=== PATIENT | female | born 1940 | race Caucasian/White ===

== ENCOUNTER → 2018-03-13 13:00 | Outpatient (CLI) | payer MEDICARE, SELFPAY | PROVIDERS: PCP Nurse Practitioner; Visit Provider Physician Assistant | DX: R00.2 Palpitations (principal) | CPT/HCPCS: 93225; 93226 ==

== ENCOUNTER → 2018-03-25 12:00 | Outpatient (CLI) | payer MEDICARE, SELFPAY ==
--- NOTE | 2018-03-25 12:13 | NM_ITS ---
CARDIOLITE SPECT MYOCARDIAL PERFUSION SCAN, REST AND STRESS: EXERCISE STRESS [facility] REVIEW QGS EF AND WALL MOTION EVALUATION: QPS - PERFUSION EVALUATION HISTORY: SOB, Palpitations, HTN, CAD DOSE: 9.76 mCi technetium 99m mibi intravenously at rest followed by 31.7 mCi technetium 99m mibi following the intravenous ministration of 0.4 mg of Lexiscan. Resting blood pressure is 155/86. Stress blood pressure 111/65. FINDINGS: Ejection fraction is calculated to be 55%. Stress images reveal severely decreased activity in the mid anterior apical wall and septum. Rest images reveal improved activity in the apex with minimal improvement in the septum and slight improvement in the mid anterior wall. IMPRESSION: High risk abnormal stress test. The stress test suggests previous nontransmural myocardial infarction involving the mid anterior apical wall and septum with reversibility in a portion of the anterior wall and apex. The septum is not reversed. There is mild anterior apical hypokinesis. Normal ejection fraction
--- NOTE | 2018-03-25 12:30 | HMH.ITSHM ---
CARVEDILOL TRIAM/HCTZ ATORVASTATIN ESTRADOL IBANDRONATE SODIUM
== END ==
PROVIDERS: Family Provider Family Medicine; PCP Nurse Practitioner; Visit Provider Physician Assistant
DX: R07.9 Chest pain, unspecified (principal); I25.10 Atherosclerotic heart disease of native coronary artery without angina pectoris; R06.00 Dyspnea, unspecified
CPT/HCPCS: 78452; 93017; 93306; A9502; J2785

== ENCOUNTER → 2019-07-08 12:56 | Outpatient (POV) | payer MEDICARE, SELFPAY | PROVIDERS: Visit Provider Dermatology | DX: Z00.00 Encounter for general adult medical examination without abnormal findings (principal) ==

== ENCOUNTER 2025-05-04 11:57 | Day surgery (SDC) | payer MEDICARE, SELFPAY ==
[2025-05-04] MEDS: LACTATED RINGERS 1000ML 1,000 ML 50 ML IV (12:49)
[2025-05-04 12:56] VITALS: BP 123/71; PULSE 63; RESP 18; TEMP 36.3; O2SAT 98
--- NOTE | 2025-05-04 13:05 | EXP.ANES.CKL ---
[facility] Disclaimer: The information contained in this section may have been updated after the patient was seen, as this information can be updated by other users. Medical History Skin cancer Left bundle branch block Rectocele Osteoporosis Melanosis coli Hypertension Heart disease Hemorrhoids Diverticulosis Surgical History Hx of cardiac cath H/O vaginal hysterectomy History of cholecystectomy H/O: hysterectomy Family History Other Cancer Heart disease Social History Smoking Status: Never smoker alcohol intake: never substance use type: denies use current occupational status: retired Travel in the last 8 weeks?: None Have you lived/traveled outside [place] in past 30 days?: No Contact w/someone who lives/traveled outside US past 30 days?: No Exposure to someone with infectious disease in past 14 days?: No Do you have a fever (greater than 100.4 F or 38 C)?: No Have you tested positive for COVID-19?: No Exposed to someone with COVID-19 in past 14 days?: No Do you have a sore throat?: No Do you have a cough?: No Do you have any weakness?: No Are you experiencing any nausea/vomitting?: No Do you have any diarrhea?: No Are you experiencing any unusual bleeding?: No Do you have any muscle aches/pain?: No Do you have any abdominal pain?: No Are you experiencing loss of taste or smell?: No [facility] Anesthesia Checklist Patient Identification Patient Identification: Arm Band and Verbal (Name & ) Structural Data Admitted From: Home Planned Operative Procedure/s: colonscopy Consent for Planned Operative Procedure(s) Verified: Yes Verified Documents: Surgical Consent and History and Physical NPO Status Verified Time NPO: 00:00 Additional verifications Patient : No Anesthesia Reactions: No Previous Colonoscopy: Yes Airway Assessment Mallampati Score:: Class III Neurological Assessment Level of Consciousness: Awake, Alert and Appropriate Hx Seizures: No Anesthesia Plan Anesthesia Risk discussed: Yes Anesthesia Plan: Verified ASA Class: II Anesthesia Type: MAC
--- NOTE | 2025-05-04 13:14 | EXP.HP ---
History of Present Illness *Admission Date: 05/04/25 *Reason for visit:: Personal history of adenomatous colon polyps *History of present illness: Mrs. Johanna Henley is an 84-year-old female with a prior history of multiple adenomatous colon polyps and a family history of colon cancer who is here for surveillance colonoscopy. The examination is deemed medically necessary for surveillance colonoscopy. The patient has been seen, interviewed and examined prior to the procedure by both myself and the anesthesia provider. [facility] Disclaimer: The information contained in this section may have been updated after the patient was seen, as this information can be updated by other users. Medical History Skin cancer Left bundle branch block Rectocele Osteoporosis Melanosis coli Hypertension Heart disease Hemorrhoids Diverticulosis Surgical History Hx of cardiac cath H/O vaginal hysterectomy History of cholecystectomy H/O: hysterectomy Family History Other Cancer Heart disease Social History Smoking Status: Never smoker alcohol intake: never substance use type: denies use current occupational status: retired Travel in the last 8 weeks?: None Have you lived/traveled outside US in past 30 days?: No Contact w/someone who lives/traveled outside [place] past 30 days?: No Exposure to someone with infectious disease in past 14 days?: No Do you have a fever (greater than 100.4 F or 38 C)?: No Have you tested positive for COVID-19?: No Exposed to someone with COVID-19 in past 14 days?: No Do you have a sore throat?: No Do you have a cough?: No Do you have any weakness?: No Are you experiencing any nausea/vomitting?: No Do you have any diarrhea?: No Are you experiencing any unusual bleeding?: No Do you have any muscle aches/pain?: No Do you have any abdominal pain?: No Are you experiencing loss of taste or smell?: No Other Medical History Have you received the Pneumonia Vaccine: Yes Review of Systems Review of Systems Review of systems (narrative): Negative *Cardiovascular Comments: Negative *Gastrointestinal Comments: Negative *Genitourinary Comments: Negative *Musculoskeletal Comments: Negative *Neurologic Comments: Negative Meds Home Medications and Allergies Home Medications ?Medication ?Instructions ?Recorded ?Confirmed ?Type amlodipine 5 mg tablet 5 mg PO DAILY 02/24/25 05/04/25 History antiarthritic combination no.2 900 1,500 mg PO BID 02/24/25 05/04/25 History mg tablet (glucosamine-chondroitin) ascorbic acid (vitamin C) 500 mg 400 mg PO .2xweek 02/24/25 05/04/25 History capsule aspirin 81 mg capsule 81 mg PO DAILY 02/24/25 05/04/25 History atorvastatin 40 mg tablet 40 mg PO DAILY 02/24/25 05/04/25 History calcium 250 mg (as 1 tab PO BID 02/24/25 05/04/25 History citrate)-vitamin D3 5 mcg (200 unit) tablet carvedilol 6.25 mg tablet 6.25 mg PO BID 02/24/25 05/04/25 History cholecalciferol (vitamin D3) 10 10 mcg PO .2XWEEK 02/24/25 05/04/25 History mcg (400 unit) capsule docosahexaenoic acid (dha)-epa 120 1 cap PO .2XWEEK 02/24/25 05/04/25 History mg-180 mg capsule (Fish Oil) estradiol 0.01% (0.1 mg/gram) 0 applic vaginal .2EK 02/24/25 05/04/25 History vaginal cream ibandronate 150 mg tablet 150 mg PO QMONTH 02/24/25 05/04/25 History losartan 50 mg tablet 75 mg PO BID 02/24/25 05/04/25 History multivitamin 1 tab PO .2XWEEK 02/24/25 05/04/25 History polyethylene glycol 3350 17 17 g PO BID 02/24/25 05/04/25 History gram/dose oral powder (Miralax) sodium,potassium,mag sulfates 17.5 See Rx Instructions PO .COMPLEX 04/28/25 05/04/25 Rx gram-3.13 gram-1.6 gram oral soln #354 mL (Suprep Bowel Prep Kit) acetaminophen 500 mg tablet 1,000 mg PO BID 04/29/25 05/04/25 History simethicone 250 mg capsule (Gas-X) 125 mg PO DAILY 04/29/25 05/04/25 History New Prescriptions to Start Prescriptions: Allergies Allergy/AdvReac Type Severity Reaction Status Date / Time amoxicillin (From Augmentin) Allergy Diarrhea Verified 05/04/25 12:55 clavulanic acid (From Allergy Diarrhea Verified 05/04/25 12:55 Augmentin) sulfamethoxazole (From Allergy Headache Verified 05/04/25 12:55 Bactrim) trimethoprim (From Bactrim) Allergy Headache Verified 05/04/25 12:55 hydrocodone AdvReac Mild NA-NAUSEA Verified 05/04/25 12:55 Exam Data for Last 24 hours Vital signs and Labs for Last 24 Hours: Temp Pulse Resp BP Pulse Ox O2 Del Method 97.3 F L 63 18 123/71 98 Room Air 05/04/25 12:56 05/04/25 12:56 05/04/25 12:56 05/04/25 12:56 05/04/25 12:56 05/04/25 12:56 *Routine HEENT Exam Head: Present normocephalic Eye: Present EOMI and PERRL ENT: Present mucous membranes moist *Routine Neck Exam Neck: Present supple *Routine Respiratory Exam Respiratory: Present CTA bilaterally *Routine Cardiovascular Exam Cardiovascular: Present RRR *Routine Abdominal Exam Abdominal: Present soft and normoactive bowel sounds; Absent tenderness *Routine Rectal Exam Rectal:: deferred *Routine Genitalia Exam Genitalia:: deferred *Routine Extremities Exam Extremities: Absent cyanosis, clubbing or edema *Routine Skin Exam Skin: Present warm; Absent rash *Routine Neurological Exam Neurological: Present alert and oriented X3 Assessment and Plan *Assessment and plan (1) Family history of colon cancer: Status: Acute Category: Medical Code(s): Z80.0 - Family history of malignant neoplasm of digestive organs (2) Personal history of adenomatous and serrated colon polyps: Status: Acute Category: Medical Code(s): Z86.0101 - Personal history of adenomatous and serrated colon polyps Plan A/P: 1. Personal history of adenomatous colon polyps and family history of colon cancer is the preprocedural diagnosis. The patient will be anesthetized/sedated using MAC sedation. The patient has been seen and examined. Cardiac and lung assessment prior to the examination is stable. Proceed with planned surveillance colonoscopy.
--- NOTE | 2025-05-04 13:23 | HMH.PROCNOTE ---
[facility] Procedure Note Date: 05/04/25 Time: 13:47 Procedure Note:: Colonoscopy Procedure Report: Colonoscopy with cold snare polypectomy Endoscopist: Rayshawn De Luna II, MD Referring physician: [facility] Date of Procedure: May 04, 2025 Equipment: Olympus 190 variable stiffness pediatric colonoscope Sedation: MAC sedation Indication: Mrs. Villanueva is an 84-year-old female with a personal history of adenomatous colon polyps. She had a colonoscopy in December 2017 and had 5 polyps (tubular adenomas x 5) removed. Her last colonoscopy in February 2021 revealed 3 polyps (tubular adenomas x 3) which were removed. She does state that her maternal great aunt and possibly her maternal uncle had colon cancer. The patient does have some outlet dysfunction constipation. She reports no rectal bleeding, abdominal pain or weight loss. Procedure: Prior to the procedure, a history and physical exam was performed, and patient's medications and allergies were reviewed. The risks, benefits and alternatives of the sedation and procedure were discussed with the patient. All questions were answered and informed consent was obtained. The patient was brought to the procedure room. Patient identification and proposed procedure were verified by the physician and the nurse. The patient was placed in a left lateral decubitus position and the scope was passed under direct vision. Throughout the procedure, the patient's blood pressure, pulse, and oxygen saturations were monitored continuously. The colonoscopy was accomplished without difficulty. The patient tolerated the procedure well. Findings: On digital rectal examination there was normal rectal tone. There were no external hemorrhoids. The colonoscope was introduced through the anal canal to the rectum and advanced to the cecum. The ileocecal valve and appendiceal orifice were identified. The scope was advanced a short distance into the ileum which appeared grossly normal. The scope was then withdrawn into the colon. There were 2 polyps (ascending x 2 (2 and 3 mm)) which were removed via cold snare polypectomy. The remaining cecum, ascending and transverse colon and mucosa were grossly normal. There were scattered diverticuli throughout the descending and sigmoid colon (LEFT colon). The rectum itself was normal. Upon retroflexion within the rectum there were grade 1-2 internal hemorrhoids. The preparation was good throughout with [place] Preparation Score of 8 out of 9. The cecal time was 14 minutes. Impression: 1. Diminutive ascending colonic polyps x 2 2. Left-sided diverticulosis 3. Grade 1-2 internal hemorrhoids Plan: I will follow-up the polyp histology. The patient should not require any further preventive/surveillance colonoscopy. I have recommended pelvic floor physical therapy for her outlet dysfunction constipation. I would continue MiraLAX plus Konsyl twice daily.
[2025-05-04 13:49] VITALS: BP 82/50; PULSE 66; RESP 16; TEMP 36.3; O2SAT 94
[2025-05-04 13:59] VITALS: BP 88/53; PULSE 61; RESP 16; O2SAT 95
[2025-05-04 14:09] VITALS: BP 91/56; PULSE 69; RESP 16; O2SAT 97
[2025-05-04 14:19] VITALS: BP 98/60; PULSE 71; RESP 16; O2SAT 98
== END 2025-05-04 14:27 | disposition home or self-care (01) ==
PROVIDERS: PCP Pediatrics; Visit Provider Internal Medicine Gastroenterology
PROC: 0DJD8ZZ Inspection of Lower Intestinal Tract, Via Natural or Artificial Opening Endoscopic (ICD-10-PCS; CPT 45378; principal; 2025-05-04 13:30)
DX: K63.5 Polyp of colon (principal); K57.90 Diverticulosis of intestine, part unspecified, without perforation or abscess without bleeding; K64.0 First degree hemorrhoids; K64.1 Second degree hemorrhoids; I11.9 Hypertensive heart disease without heart failure; Z86.0101 Personal history of adenomatous and serrated colon polyps; Z80.0 Family history of malignant neoplasm of digestive organs; Z88.1 Allergy status to other antibiotic agents; Z88.2 Allergy status to sulfonamides; Z88.5 Allergy status to narcotic agent; Z79.899 Other long term (current) drug therapy; Z79.82 Long term (current) use of aspirin
CPT/HCPCS: 45385; J2003; J2704; J7120